=== PATIENT | female | born 1950 | race Caucasian/White ===

== ENCOUNTER 2023-12-07 06:23 | Day surgery (SDC) | payer MEDICARE ==
[2023-12-03 16:52] VITALS: BMI 28.5
[2023-12-07] MEDS ORDERED: PROPOFOL 20 ML ONE ×2 (09:12→11:36)
[2023-12-07] MEDS ORDERED: Lidocaine 2% PF 5 ML VIAL ONE (09:13)
[2023-12-07] MEDS ORDERED: Isosulfan Blue 50 MG/5 ML VIAL ONE (09:27)
[2023-12-07] MEDS ORDERED: Bupivacaine HCl 0.5%/Epinephrine 1:200,000/PF 30 ml Vial ONE (09:27)
[2023-12-07] MEDS ORDERED: Clindamycin/D5W 600 mg/50 ml Premix Bag ONE (09:41)
[2023-12-07] MEDS ORDERED: Ondansetron PF 4 MG/2 ML Vial ONE (09:43)
[2023-12-07] MEDS ORDERED: Dexamethasone 4 mg/ml Vial ONE (09:43)
[2023-12-07] MEDS ORDERED: fentaNYL 50 mcg/mL 1 mL Vial ONE ×2 (09:45→10:32)
[2023-12-07] MEDS ORDERED: Ketorolac Tromethamine 30 MG (1 mL) VIAL ONE (11:32)
== END 2023-12-07 13:20 | disposition home or self-care (01) ==
LOC: CSHSDC 06:23
PROVIDERS: ATTEND Surgery
PROC: 0HBT0ZZ Excision of Right Breast, Open Approach (ICD-10-PCS; principal; 2023-12-07)
PROC: 07T50ZZ Resection of Right Axillary Lymphatic, Open Approach (ICD-10-PCS; 2023-12-07)
DX: C50.811 Malignant neoplasm of overlapping sites of right female breast (principal); N60.91 Unspecified benign mammary dysplasia of right breast; N60.31 Fibrosclerosis of right breast; D24.1 Benign neoplasm of right breast; D36.0 Benign neoplasm of lymph nodes; Z88.0 Allergy status to penicillin; Z88.5 Allergy status to narcotic agent; I10 Essential (primary) hypertension; Z79.82 Long term (current) use of aspirin; Z79.899 Other long term (current) drug therapy
CPT/HCPCS: 19281; 19301; 38525; 38900; 76098; C1713; J1100; J1885; J2405; J2704; J3010; J3490; Q9968; 88305; 88307; 88341; 88342; 88361

== ENCOUNTER 2024-02-01 14:56 | Outpatient (CLI) | payer MEDICARE | END 2024-02-01 14:57 | disposition home or self-care (01) | LOC: CSHMAMMO 14:56 | PROVIDERS: ATTEND Internal Medicine Hematology & Oncology | DX: M85.851 Other specified disorders of bone density and structure, right thigh (principal); M85.852 Other specified disorders of bone density and structure, left thigh | CPT/HCPCS: 77080 ==